=== PATIENT | female | born 1965 | race Caucasian/White ===

== ENCOUNTER → 2018-04-10 10:59 | Outpatient (CLI) | payer OTHER, SELFPAY ==
[2018-04-10 12:01] LABS: Alanine Aminotransferase 34 IU/L (9-52); Albumin 4.2 g/dL (3.5-5.0); Albumin Globulin Ratio 1.6 (1.0-2.8); Alkaline Phosphatase 93 U/L (38-126); Aspartate Aminotransferase 23 IU/L (14-36); BUN Creatinine Ratio 18.6 (6-22); Bilirubin Total 0.5 mg/dL (0.2-1.3); Blood Urea Nitrogen 13 mg/dL (7-17); Calcium 9.3 mg/dL (8.4-10.2); Carbon Dioxide 27 mmol/L (22-32); Chloride 104 mmol/L (98-107); Cholesterol 258 mg/dL (140-199); Estimated Glomerular Filt Rate > 60.0 mL/min (>60); Globulin 2.6 g/dL (1.7-4.1); Glucose 96 mg/dL (70-100); HDL Cholesterol 54 mg/dL (40-60); HEMOLYSIS < 15 (0-50); LDL Cholesterol Calculated 166 mg/dL (<100); Potassium 4.4 mmol/L (3.4-5.1); Sodium 143 mmol/L (137-145); Total Protein 6.8 g/dL (6.3-8.2); Triglycerides 189 mg/dL (35-150)
== END ==
PROVIDERS: Family Provider Physician Assistant; PCP Physician Assistant; Visit Provider Physician Assistant
DX: E78.5 Hyperlipidemia, unspecified (principal)
CPT/HCPCS: 36415; 80053; 80061

== ENCOUNTER → 2018-04-11 11:15 | Outpatient (CLI) | payer OTHER, SELFPAY ==
--- NOTE | 2018-04-11 11:16 | DI.RAD.S_ITS ---
PROCEDURE: XR FOOT RT MIN 3V INDICATIONS: right foot pain TECHNIQUE: 3 views of the foot were acquired. COMPARISON: None. FINDINGS: Bones: No fractures or dislocations. No suspicious bony lesions. Soft tissues: No tibiotalar joint effusion. Achilles tendon appears normal. IMPRESSION: No trauma found, no sign of stress fracture, source of current persistent pain is not seen. Dictated by: Anibal Danielle M.D. on 04/11/2018 at 12:51 Approved by: Anibal Danielle M.D. on 04/11/2018 at 12:51
== END ==
PROVIDERS: Family Provider Physician Assistant; PCP Physician Assistant; Visit Provider Physician Assistant
DX: M79.671 Pain in right foot (principal)
CPT/HCPCS: 73630

== ENCOUNTER → 2018-05-21 11:45 | Outpatient (CLI) | payer OTHER, SELFPAY ==
--- NOTE | 2018-05-21 09:45 | DI.MG.S_ITS ---
Patient Name: MANUEL HUMMEL date: 1965 Sex: F Attending Physician: Landen Indications: Date: 05/21/2018 12:15 At the request of: DI HAMMOND Procedure: MM screening mammo BI BILATERAL DIGITAL SCREENING MAMMOGRAM 3D/2D WITH CAD: 05/21/2018 CLINICAL: Routine screening. Comparison is made to exams dated: 09/09/2015 mammogram, 11/26/2012 mammogram, and 06/22/2011 mammogram - [facility]. The tissue of both breasts is heterogeneously dense. This may lower the sensitivity of mammography. Current study was also evaluated with a Computer Aided Detection (CAD) system. There is a benign lymph node in the left breast. No significant masses, calcifications, or other findings are seen in either breast. There has been no significant interval change. IMPRESSION: There is no mammographic evidence of malignancy. A 1 year screening mammogram is recommended. This exam was interpreted at Station ID: [id number]. NOTE: For mammograms, a report in lay terms will be sent to the patient. Approximately 15% of breast malignancies will not be visualized mammographically. In the management of a palpable breast mass, a negative mammogram must not discourage biopsy of a clinically suspicious lesion. Electronically Signed By: Mark ortega/sammie:05/21/2018 22:13:06 letter sent: Normal Exam ACR BI-RADS Category 2: Benign Finding(s) [id number]
== END ==
PROVIDERS: Family Provider Physician Assistant; PCP Physician Assistant; Visit Provider Physician Assistant
DX: Z12.31 Encounter for screening mammogram for malignant neoplasm of breast (principal)
CPT/HCPCS: 77063; 77067

== ENCOUNTER 2019-04-04 14:24 | Observation (INO) | payer OTHER, SELFPAY ==
[2019-04-04] VITALS (15 sets, daily range): BP systolic 99–169; BP diastolic 45–82; PULSE 18–84; RESP 14–26; TEMP 36.1–36.7; O2SAT 93–100; BMI 38.2
--- NOTE | 2019-04-04 14:33 | DI.RAD.S_ITS ---
PROCEDURE: XR CHEST 1V INDICATIONS: fall TECHNIQUE: One view of the chest was acquired. COMPARISON: [facility], , CHEST 2 VIEW, 05/26/2010, 13:52. FINDINGS: Surgical changes and devices: None. Lungs and pleura: Diffuse increased density of the left lung compared to the right lung probably is related to the patient's overlying breast and positioning of the patient. No definite consolidation is appreciated. There is no pneumothorax or large effusion. Mediastinum: Mediastinal contours appear normal. The heart is enlarged. Bones and chest wall: No suspicious bony lesions. Overlying soft tissues appear unremarkable. IMPRESSION: No acute cardio pulmonary process is appreciated. Dictated by: Yair Dougherty M.D. on 04/04/2019 at 14:27 Approved by: Yair Dougherty M.D. on 04/04/2019 at 14:29
--- NOTE | 2019-04-04 14:33 | DI.CT.S_ITS ---
PROCEDURE: CT HEAD/BRAIN WO CON INDICATIONS: fall significant head lac TECHNIQUE: Noncontrast 4.5 mm thick angled axial sections acquired from the foramen magnum to the vertex, with coronal and sagittal reformats. For radiation dose reduction, the following was used: automated exposure control, adjustment of mA and/or kV according to patient size. COMPARISON: None. FINDINGS: Image quality: Excellent. CSF spaces: Basal cisterns are patent. No extra-axial fluid collections. Ventricles are normal in size and shape. Brain: No midline shift. No intracranial masses or hemorrhage. Lott-white matter interface is normal. Skull and face: Large left parietal subgaleal hematoma Calvarium and visualized facial bones are intact, without suspicious lesions. Sinuses: Visualized sinuses and mastoids are clear. IMPRESSION: 1. Large left parietal subgaleal hematoma. 2. Negative for acute stroke, hemorrhage, or mass. No evidence of significant intracranial sequelae of acute trauma. Dictated by: Rob Scott M.D. on 04/04/2019 at 15:14 Approved by: Rob Scott M.D. on 04/04/2019 at 15:15
--- NOTE | 2019-04-04 14:33 | DI.RAD.S_ITS ---
PROCEDURE: XR PELVIS 1-2V INDICATIONS: trauma fall TECHNIQUE: 1 view(s) of the pelvis acquired. COMPARISON: [facility], CT, CT CHEST ABD PEL W CON, 04/04/2019, 14:37. FINDINGS: Bones: No displaced pelvic fractures are identified. Degenerative changes of the lower lumbar spine, sacroiliac joints, and pubic symphysis are present. Soft tissues: Visualized bowel gas pattern is normal. No suspicious soft tissue calcifications. Contrast is seen within the urinary bladder and kidneys and is overlying the bilateral kidneys. IMPRESSION: No displaced pelvic fractures. Dictated by: Yair Dougherty M.D. on 04/04/2019 at 14:26 Approved by: Yair Dougherty M.D. on 04/04/2019 at 14:27
[2019-04-04 14:58] LABS: Add Manual Diff / Slide Review NO; Basophils Absolute Auto 200 /uL (0-100); Basophils Percent Auto 1.1 % (0-2); Eosinophils Absolute Auto 300 /uL (0-450); Eosinophils Percent Auto 1.9 % (2-4); Hemoglobin 12.7 g/dL (12.0-16.0); Lymphocytes Absolute Auto 3000 /uL (1100-4500); Lymphocytes Percent Auto 17.7 % (25-40); Mean Corpuscular HGB Conc 34.3 % (30-36); Mean Corpuscular Volume 87.6 fL (80-100); Monocytes Absolute Auto 800 /uL (0-900); Neutrophils Absolute Auto 12400 /uL (1500-7000); Neutrophils Percent Auto 74.3 % (50-75); Platelet Count 307 X10^3/uL (150-400); Red Blood Cell Count 4.23 X10^6/uL (4.0-5.2); Red Cell Distribution Width 13.8 % (11.6-14.8); White Blood Cell Count 16.7 X10^3/uL (4.5-11.0)
--- NOTE | 2019-04-04 14:59 | ED.FALL ---
HPI - Fall General Chief Complaint: Trauma Stated Complaint: Fall Time Seen by Provider: 04/04/19 14:31 Source: patient and EMS Mode of arrival: EMS Limitations: no limitations History of Present Illness HPI Narrative: Patient is a 53-year-old female who presents after fall 8-10 feet. She appears to have landed on her head and back complaining of mostly back pain. No loss of consciousness has felt very nauseous and she received 8 of Zofran prior to arrival. She has an obvious had laceration of quite a bit of blood loss. She is not on any anti-platelet or anticoagulation medication. She states that she only takes hormone replacement. She denies numbness or tingling in her legs. MD complaint: fall Onset (ago): minute(s) Loss of consciousness: unsure Related Data Previous Rx's Medication Instructions Recorded estradiol 0.5 mg tablet 0.5 mg PO DAILY #90 tab 04/09/18 Allergies Allergy/AdvReac Type Severity Reaction Status Date / Time cat dander Allergy Mild ITCHY, Verified 04/04/19 15:13 WATERY EYES Penicillins [PENICILLINS] Allergy Mild HIVES Verified 04/04/19 15:13 hydrocodone [HYDROCODONE] AdvReac Intermediate MAKES MY Verified 04/04/19 15:13 SKIN CRAWL AND MY BRAIN BECOMES OVERACTIVE oxycodone [OXYCODONE] AdvReac Intermediate MAKES MY Verified 04/04/19 15:13 SKIN CRAWL AND MY BRAIN OVERACTIVE Review of Systems Review of Systems ROS Unobtainable: All systems reviewed & are unremarkable except as noted in HPI and below Constitutional Constitutional: Denies chills, Denies fever(s), Denies lethargy and Denies weakness Cardiovascular Cardiovascular: Denies dyspnea and Denies dyspnea on exertion Respiratory Respiratory: Denies cough, Denies dyspnea, Denies dyspnea on exertion and Denies wheezing Gastrointestinal Gastrointestinal: Denies abdominal pain, Denies change in bowel habits, Denies diarrhea, Denies nausea and Denies vomiting Genitourinary Genitourinary: Denies hematuria, Denies flank pain, Denies urinary incontinence and Denies urinary urgency Musculoskeletal Musculoskeletal: Reports as per HPI Integumentary/Breasts Skin/Breast: Denies pruritus, Denies erythema, Denies rash and Denies wounds Neurologic Neurologic: Denies weakness Allergic/Immunologic Allergic/Immunologic: Denies wheezing Patient History Family History (Updated 08/25/15 @ 00:00 by Gregg Noriega RN) Brother Age: 52 Depression Bulimia Drug abuse Grandfather Age: 96 Essential hypertension, hypertension with unspecified goal Heart disease Grandmother Age: 96 Essential hypertension, hypertension with unspecified goal Malignant neoplasm of colon, unspecified part of colon Mother Age: 76 Obesity, unspecified obesity severity, unspecified obesity type Essential hypertension, hypertension with unspecified goal Bipolar affective disorder, remission status unspecified Sister Age: 55 Bipolar affective disorder, remission status unspecified Obesity, unspecified obesity severity, unspecified obesity type Essential hypertension, hypertension with unspecified goal Sleep apnea, unspecified type Social History Smoking Status: Never smoker second hand exposure: No alcohol intake: current (wine on special occasions. ) substance use type: does not use Exam Initial Vital Signs Initial Vital Signs: Vital Signs Temperature 98.1 F 04/04/19 14:30 Pulse Rate 66 04/04/19 14:30 Respiratory Rate 26 H 04/04/19 14:30 Blood Pressure 167/73 H 04/04/19 14:30 Pulse Oximetry 99 04/04/19 14:30 GENERAL: Alert female back board and C-collar prior to arrival appears in pain HEENT: Head significant blood loss noted posterior laceration with hematoma, laceration is stellate complex deep 9 cm. EOMI, pupils reactive, face symmetric, moist mucous membranes, no hemotympanum, no septal hematoma NECK: C-collar in place no vertebral tenderness CARDIOVASCULAR: Regular rate and rhythm without murmurs, rubs or gallops. RESPIRATORY: Breath sounds equal bilaterally, no wheezes rales or rhonchi. No crepitations, no subcutaneous air, chest is nontender, no signs of trauma ABDOMEN: Soft, nontender. Normoactive bowel sounds all 4 quadrants. No guarding or rebound. BACK: Nontender vertebrae, no step-offs, no contusions states she is tender more in her left lumbar buttock area PELVIS: stable. EXTREMITIES: Normal range of motion, no clubbing or edema. Right upper extremity: Within normal limits Left upper extremity: Within normal limits Right lower extremity: Within normal limits Left lower extremity:Within normal limits NEUROLOGICAL: Cranial nerves II through XII grossly intact. Normal gait and speech. SKIN: Warm, dry, no petechiae, no rashes or lesions, no contusions or ecchymosis Procedures Laceration Repair Laceration 1: Site: scalp Size (cm): 9 Description: stellate Local Anesthetic: lidocaine 1% and with epi Amount of anesthesia used (mL): 15 Pre-repair: wound explored, irrigated extensively and deep structures intact Skin layer closed with: georgie (silk 0-0 #3 sutures with mattress, #9 georgie) Scores [facility] [place] coma scale eye opening: Spontaneous [place] coma scale verbal response: Orientated [place] coma scale motor response: Obey commands [place] coma scale total score: 15 Course Orders Ordered: ED Orders 04/04/19 14:33 CT head/brain wo con Stat XR chest 1V Stat XR pelvis 1-2V Stat 04/04/19 14:45 Complete Blood Count AUTO DIFF Stat Comprehensive Metabolic Panel Stat 04/04/19 14:58 CT cervical spine wo con Stat CT chest abd pel w con Stat Discontinued Medications Diphtheria/Tetanus/Acell Pertussis (Adacel) 0.5 ml IM .ONCE ONE Stop: 04/04/19 17:01 Last Admin: 04/04/19 17:01 Dose: 0.5 ml Documented by: EDGAR Hydromorphone HCl (Dilaudid) 0.5 mg IV NOW ONE Stop: 04/04/19 15:00 Last Admin: 04/04/19 15:03 Dose: 0.5 mg Documented by: CORY Hydromorphone HCl (Dilaudid) 1 mg IV NOW ONE Stop: 04/04/19 17:36 Last Admin: 04/04/19 17:49 Dose: 1 mg Documented by: EDGAR Lidocaine/Epinephrine (Xylocaine 1% W/Epi) 10 ml SUBCUT NOW ONE Stop: 04/04/19 15:28 Last Admin: 04/04/19 16:58 Dose: 10 ml Documented by: EDGAR Ondansetron HCl (Zofran) 4 mg IV NOW ONE Stop: 04/04/19 14:32 Last Admin: 04/04/19 16:57 Dose: 4 mg Documented by: EDGRA Consultations Consultation #1: I discussed case with Dr. Denton reviewed CT in regards to sacral fracture. Pain control and follow up outpatient. Time: 16:18 Consultation #2: Dr. brown, surgery updated on patient's symptoms test results persistent headache and dizziness. Agrees with admission for observation for concussion syndrome. Time: 19:00 Vital Signs Vital signs: Vital Signs - 8 hr 04/04/19 14:30 04/04/19 15:00 04/04/19 15:15 Temperature 98.1 F Pulse Rate 66 84 68 Respiratory Rate 26 H 18 14 Blood Pressure 167/73 H 169/82 H 151/65 H Blood Pressure [Left Arm] Pulse Oximetry 99 98 100 04/04/19 15:30 04/04/19 17:30 Temperature Pulse Rate 68 55 L Respiratory Rate 16 Blood Pressure Blood Pressure [Left Arm] 146/67 H 117/58 L Pulse Oximetry 100 100 MDM - Fall Lab Data Attestation: I reviewed the patient's lab results. Result diagrams: 04/04/19 14:45 04/04/19 14:45 Labs: Lab Results 04/04/19 04/04/19 Range/Units 14:45 14:45 WBC 16.7 H (4.5-11.0) X10^3/uL RBC 4.23 (4.0-5.2) X10^6/uL Hgb 12.7 (12.0-16.0) g/dL Hct 37.0 (36-46) % MCV 87.6 (80-100) fL MCH 30.0 (26-34) PG MCHC 34.3 (30-36) % RDW 13.8 (11.6-14.8) % Plt Count 307 (150-400) X10^3/uL Neut % (Auto) 74.3 (50-75) % Lymph % (Auto) 17.7 L (25-40) % [place] % (Auto) 5.0 (3-14) % Eos % (Auto) 1.9 L (2-4) % Baso % (Auto) 1.1 (0-2) % Neut # (Auto) 31348 H (8229-1686) /uL Lymph # (Auto) 3000 (0611-6374) /uL [place] # (Auto) 800 (0-900) /uL Eos # (Auto) 300 (0-450) /uL Baso # (Auto) 200 H (0-100) /uL Sodium 138 (137-145) mmol/L Potassium 3.5 (3.4-5.1) mmol/L Chloride 106 (98-107) mmol/L Carbon Dioxide 21 L (22-32) mmol/L BUN 20 H (7-17) mg/dL Creatinine 0.80 (0.52-1.04) mg/dL Estimated GFR > 60.0 (>60) mL/min BUN/Creatinine Ratio 25.0 H (6-22) Glucose 120 H (70-100) mg/dL Calcium 9.1 (8.4-10.2) mg/dL Total Bilirubin 0.7 (0.2-1.3) mg/dL AST 40 H (14-36) IU/L ALT 31 (<35) IU/L Alkaline Phosphatase 66 (38-126) U/L Total Protein 6.7 (6.3-8.2) g/dL Albumin 4.1 (3.5-5.0) g/dL Globulin 2.6 (1.7-4.1) g/dL Albumin/Globulin Ratio 1.6 (1.0-2.8) Imaging Data Chest x-ray: Radiologist's impression: PROCEDURE: XR CHEST 1V INDICATIONS: fall TECHNIQUE: One view of the chest was acquired. COMPARISON: [facility], CR, CHEST 2 VIEW, 05/26/2010, 13:52. FINDINGS: Surgical changes and devices: None. Lungs and pleura: Diffuse increased density of the left lung compared to the right lung probably is related to the patient's overlying breast and positioning of the patient. No definite consolidation is appreciated. There is no pneumothorax or large effusion. Mediastinum: Mediastinal contours appear normal. The heart is enlarged. Bones and chest wall: No suspicious bony lesions. Overlying soft tissues appear unremarkable. IMPRESSION: No acute cardio pulmonary process is appreciated. Dictated by: Yair Dougherty M.D. on 04/04/2019 at 14:27 pelvis xr: Radiologist's impression: PROCEDURE: XR PELVIS 1-2V INDICATIONS: trauma fall TECHNIQUE: 1 view(s) of the pelvis acquired. COMPARISON: [facility], CT, CT CHEST ABD PEL W CON, 04/04/2019, 14:37. FINDINGS: Bones: No displaced pelvic fractures are identified. Degenerative changes of the lower lumbar spine, sacroiliac joints, and pubic symphysis are present. Soft tissues: Visualized bowel gas pattern is normal. No suspicious soft tissue calcifications. Contrast is seen within the urinary bladder and kidneys and is overlying the bilateral kidneys. IMPRESSION: No displaced pelvic fractures. Dictated by: Yair Dougherty M.D. on 04/04/2019 at 14:26 CT scan - head: Radiologist's impression: PROCEDURE: CT HEAD/BRAIN WO CON INDICATIONS: fall significant head lac TECHNIQUE: Noncontrast 4.5 mm thick angled axial sections acquired from the foramen magnum to the vertex, with coronal and sagittal reformats. For radiation dose reduction, the following was used: automated exposure control, adjustment of mA and/or kV according to patient size. COMPARISON: None. FINDINGS: Image quality: Excellent. CSF spaces: Basal cisterns are patent. No extra-axial fluid collections. Ventricles are normal in size and shape. Brain: No midline shift. No intracranial masses or hemorrhage. Lott-white matter interface is normal. Skull and face: Large left parietal subgaleal hematoma Calvarium and visualized facial bones are intact, without suspicious lesions. Sinuses: Visualized sinuses and mastoids are clear. IMPRESSION: 1. Large left parietal subgaleal hematoma. 2. Negative for acute stroke, hemorrhage, or mass. No evidence of significant intracranial sequelae of acute trauma. Dictated by: Rob Scott M.D. on 04/04/2019 at 15:14 ct cervical: Radiologist's impression: PROCEDURE: CT CERVICAL SPINE WO CON INDICATIONS: fall TECHNIQUE: Noncontrast 3 mm thick sections acquired from the skull base to the T4 level. Sagittal and coronal reformats were then constructed. For radiation dose reduction, the following was used: automated exposure control, adjustment of mA and/or kV according to patient size. COMPARISON: None. FINDINGS: Image quality: Excellent. Bones: No fractures or dislocations. Visualized superior ribs are intact. Soft tissues: Prevertebral soft tissues are normal in thickness. No paravertebral hematomas. No apical pneumothoraces. IMPRESSION: No evidence cervical fracture or dislocation. Dictated by: Rob Scott M.D. on 04/04/2019 at 15:12 CT scan - chest: Radiologist's impression: PROCEDURE: CT CHEST ABD PEL W CON INDICATIONS: fall low pack and pelvic pain TECHNIQUE: After the administration of intravenous contrast, 5 mm thick sections acquired from the lung apices to the symphysis. 2.5 mm thick coronal and sagittal reformats were acquired. Additional 7 mm thick coronal maximum intensity projection (MIP) reformats acquired through the lungs. Optional 10-minute delayed imaging may be performed from the kidneys to the bladder. For radiation dose reduction, the following was used: automated exposure control, adjustment of mA and/or kV according to patient size. COMPARISON: [facility], CT, ABDOMEN/PELVIS WITH CONTRAST, 03/05/2015, 11:09. FINDINGS: Image quality: Excellent. CHEST: Lungs: No pulmonary contusions or lacerations. No acute airspace opacities. No pneumothorax or hemothorax. Central and peripheral airways appear patent and normal in caliber. Mediastinum: No mediastinal hematomas. Heart size is normal. No pericardial effusion. Thoracic aorta and pulmonary arteries demonstrate normal size and enhancement. No mediastinal or hilar adenopathy. Esophagus is normal in caliber. No hiatal hernia. Chest wall: No rib fractures. No subcutaneous emphysema. No axillary or supraclavicular adenopathy. Thyroid gland is unremarkable. ABDOMEN: Solid organs: Liver is normal in size and enhancement, without lacerations. Gallbladder is unremarkable. Biliary system is non-dilated. Pancreas enhances normally, without transection. Spleen is normal in size and enhancement, without lacerations. No adrenal hematomas. Both kidneys enhance normally, without hydronephrosis or lacerations. Peritoneum and bowel: No free fluid or air. Unenhanced bowel loops demonstrate normal wall thickness and caliber. Nodes and vessels: No retroperitoneal or mesenteric adenopathy. Aorta and inferior vena cava are normal in size and enhancement. Miscellaneous: No ventral hernias. PELVIS: Genitourinary: Bladder wall thickness is normal. Miscellaneous: No inguinal hernias or adenopathy. Bones: There appear to be 13 rib bearing vertebrae. The lowest rib-bearing vertebra has a mild acute compression fracture. There is a transitional lumbosacral vertebra. The vertebra above the transitional vertebra has bilateral chronic pars defects with minimal anterolisthesis present. There is a acute sacral fracture with a transverse component involving approximately S2. There are no other pelvic fractures identified. IMPRESSION: 1. Mild acute compression fracture involving the lowest rib-bearing vertebra. 2. Transverse sacral fracture. 3. Transitional lumbosacral vertebra. 4. Chronic bilateral pars defects one level above the transitional lumbosacral vertebra with chronic mild anterolisthesis at that level. Dictated by: Rob Scott M.D. on 04/04/2019 at 15:16 MDM Narrative Medical decision making narrative: Patient continues to be nauseous and have headache Dilaudid does seem to help. She does not tolerate hydrocodone or oxycodone for a while but Dilaudid seems to help with her back pain and headache. She is quite sensitive to light. Every time she sits up she gets extremely dizzy and lightheaded and her headache gets significantly worse. Patient has significant mechanism fall with obvious head injury no intracranial hemorrhage identified at this time she actually is not on any anti-platelet or anticoagulation medication. However based on symptoms and mechanism recommend patient be admitted for observation for concussion syndrome and close monitoring. I have spoken with surgery about this who agrees and will come and evaluate patient. Discharge Plan Departure Patient Disposition: Admitted as Observation Clinical Impression: Concussion Qualifiers: Encounter type: initial encounter Loss of consciousness presence/duration: without LOC Qualified Code(s): S06.0X0A - Concussion without loss of consciousness, initial encounter Laceration of head Qualifiers: Encounter type: initial encounter Location of open wound of head: scalp Foreign body presence: without foreign body Qualified Code(s): S01.01XA - Laceration without foreign body of scalp, initial encounter Sacral fracture Qualifiers: Encounter type: initial encounter Zone of sacrum fracture: unspecified portion of sacrum Fracture type: closed Qualified Code(s): S32.10XA - Unspecified fracture of sacrum, initial encounter for closed fracture
[2019-04-04] MEDS: HYDROMORPHONE 0.5 MG INJ IV ×3 (15:03→23:54)
[2019-04-04 15:11] LABS: Alanine Aminotransferase 31 IU/L (<35); Albumin 4.1 g/dL (3.5-5.0); Albumin Globulin Ratio 1.6 (1.0-2.8); Alkaline Phosphatase 66 U/L (38-126); Aspartate Aminotransferase 40 IU/L (14-36); Bilirubin Total 0.7 mg/dL (0.2-1.3); Blood Urea Nitrogen 20 mg/dL (7-17); Calcium 9.1 mg/dL (8.4-10.2); Carbon Dioxide 21 mmol/L (22-32); Chloride 106 mmol/L (98-107); Estimated Glomerular Filt Rate > 60.0 mL/min (>60); Globulin 2.6 g/dL (1.7-4.1); Glucose 120 mg/dL (70-100); HEMOLYSIS 48 (0-50); Potassium 3.5 mmol/L (3.4-5.1); Sodium 138 mmol/L (137-145); Total Protein 6.7 g/dL (6.3-8.2)
[2019-04-04] MEDS: ONDANSETRON 4 MG/2 ML INJ IV ×2 (16:57→20:05)
[2019-04-04] MEDS: LIDOCAINE 1% W/EPI 10 ML SUBCUT (16:58)
[2019-04-04] MEDS: TET,DIPH,PERTUSS(ACELL),VAC/PF 0.5 ML SYRINGE IM (17:01)
--- NOTE | 2019-04-04 17:12 | PC.NURSE ---
Pt has a large scalp wound seen on arrival. Pt has a large amount of clotting that has matting to entire head and it is difficult to assess extent of wounds to scalp, cleaning for 1 hour after repair of main head laceration. Pt is able to move from side to side slowly with difficulty yet independent. Pt medicated for nausea after moving.
[2019-04-04] MEDS: HYDROMORPHONE 1 MG INJ IV (17:49)
--- NOTE | 2019-04-04 20:16 | P.HP_ITS ---
History of Present Illness History of Present Illness Date Patient Seen: 04/04/19 Time Patient Seen: 20:16 Chief complaint: Fall Narrative: This is a 53-year-old woman who came in as the trauma alert for fall from height, 8-10 feet. She was on her roof, and a says she tried to come down the ladder, and she does not remember what happened, but ultimately she woke up on the ground. The patient says her daughter told her she hit her head on the concrete, and there was a large pool of blood on the concrete. The patient says her daughter reported that she crawled into her home and called her daughter for help. In the ER she was dizzy and nauseated, but maintained consciousness. She had a CT scan of head C-spine chest abdomen pelvis, and was found to have a thoracic vertebra fracture, sacral vertebrae fracture, a large subgaleal hematoma, and a large head lac. The head lack was closed with sutures and georgie by the ER doctor. They tried to get the patient up to walk her around, and she was too dizzy to tolerate sitting upright. The patient is now alert and talking clearly with good recollection of remote and recent details. ROS:She reports some blurry vision, but denies double vision. She says that she was photosensitive but now denies any sensitivity to light. She still feels very dizzy if she sits up. She denies a headache, nausea, abdominal pain, chest pain, extremity pain. She her only complaint is lower back pain. She needs to urinate but denies dysuria or incontinence. Ten system ROS was otherwise negative. Home meds: estradiol 0.5 mg tablet 0.5 mg PO DAILY #90 tab 04/09/18 Allergies Allergy/AdvReac Type Severity Reaction Status Date / Time cat dander Allergy Mild ITCHY, Verified 04/04/19 15:13 WATERY EYES Penicillins [PENICILLINS] Allergy Mild HIVES Verified 04/04/19 15:13 hydrocodone [HYDROCODONE] AdvReac Intermediate MAKES MY Verified 04/04/19 15:13 SKIN CRAWL AND MY BRAIN BECOMES OVERACTIVE oxycodone [OXYCODONE] AdvReac Intermediate MAKES MY Verified 04/04/19 15:13 SKIN CRAWL AND MY BRAIN OVERACTIVE PE: GENERAL: Alert female lying in left lateral decubitus position, with a moderate amount of blood caked in her hair an on pad behind her head. She appears comfortable, with no signs of distress. HEENT: Head significant blood loss noted posterior laceration with hematoma, laceration is stellate complex, 9 cm. EOMI, PERRLA, face symmetric, moist mucous membranes NECK: Supple, full range of motion CARDIOVASCULAR: Regular rate and rhythm without murmurs, rubs or gallops. RESPIRATORY: Breath sounds equal bilaterally, no wheezes rales or rhonchi. Good air movement bilaterally ABDOMEN: Soft, nontender. No guarding or rebound. BACK: Nontender vertebrae, no step-offs EXTREMITIES: Normal range of motion. No lacerations, contusions, or edema NEUROLOGICAL: Cranial nerves grossly intact. Normal speech. SKIN: Warm, dry, no petechiae, no other rashes or lesions, no contusions or ecchymosis Psych: Appropriate mood and affect GCS [place] coma scale eye opening: Spontaneous [place] coma scale verbal response: Orientated [place] coma scale motor response: Obey commands Kalli coma scale total score: 15 Imaging Data Chest x-ray: Radiologist's impression: PROCEDURE: XR CHEST 1V INDICATIONS: fall TECHNIQUE: One view of the chest was acquired. COMPARISON: [facility], CR, CHEST 2 VIEW, 05/26/2010, 13:52. FINDINGS: Surgical changes and devices: None. Lungs and pleura: Diffuse increased density of the left lung compared to the right lung probably is related to the patient's overlying breast and positioning of the patient. No definite consolidation is appreciated. There is no pneumothorax or large effusion. Mediastinum: Mediastinal contours appear normal. The heart is enlarged. Bones and chest wall: No suspicious bony lesions. Overlying soft tissues appear unremarkable. IMPRESSION: No acute cardio pulmonary process is appreciated. Dictated by: Yair Dougherty M.D. on 04/04/2019 at 14:27 pelvis xr: Radiologist's impression: PROCEDURE: XR PELVIS 1-2V INDICATIONS: trauma fall TECHNIQUE: 1 view(s) of the pelvis acquired. COMPARISON: [facility], CT, CT CHEST ABD PEL W CON, 04/04/2019, 14:37. FINDINGS: Bones: No displaced pelvic fractures are identified. Degenerative changes of the lower lumbar spine, sacroiliac joints, and pubic symphysis are present. Soft tissues: Visualized bowel gas pattern is normal. No suspicious soft tissue calcifications. Contrast is seen within the urinary bladder and kidneys and is overlying the bilateral kidneys. IMPRESSION: No displaced pelvic fractures. Dictated by: Yair Dougherty M.D. on 04/04/2019 at 14:26 CT scan - head: Radiologist's impression: PROCEDURE: CT HEAD/BRAIN WO CON INDICATIONS: fall significant head lac TECHNIQUE: Noncontrast 4.5 mm thick angled axial sections acquired from the foramen magnum to the vertex, with coronal and sagittal reformats. For radiation dose reduction, the following was used: automated exposure control, adjustment of mA and/or kV according to patient size. COMPARISON: None. FINDINGS: Image quality: Excellent. CSF spaces: Basal cisterns are patent. No extra-axial fluid collections. Ventricles are normal in size and shape. Brain: No midline shift. No intracranial masses or hemorrhage. Lott-white matter interface is normal. Skull and face: Large left parietal subgaleal hematoma Calvarium and visualized facial bones are intact, without suspicious lesions. Sinuses: Visualized sinuses and mastoids are clear. IMPRESSION: 1. Large left parietal subgaleal hematoma. 2. Negative for acute stroke, hemorrhage, or mass. No evidence of significant intracranial sequelae of acute trauma. Dictated by: Rob Scott M.D. on 04/04/2019 at 15:14 ct cervical: Radiologist's impression: PROCEDURE: CT CERVICAL SPINE WO CON INDICATIONS: fall TECHNIQUE: Noncontrast 3 mm thick sections acquired from the skull base to the T4 level. Sagittal and coronal reformats were then constructed. For radiation dose reduction, the following was used: automated exposure control, adjustment of mA and/or kV according to patient size. COMPARISON: None. FINDINGS: Image quality: Excellent. Bones: No fractures or dislocations. Visualized superior ribs are intact. Soft tissues: Prevertebral soft tissues are normal in thickness. No paravertebral hematomas. No apical pneumothoraces. IMPRESSION: No evidence cervical fracture or dislocation. Dictated by: Rob Scott M.D. on 04/04/2019 at 15:12 CT scan - chest: Radiologist's impression: PROCEDURE: CT CHEST ABD PEL W CON INDICATIONS: fall low pack and pelvic pain TECHNIQUE: After the administration of intravenous contrast, 5 mm thick sections acquired from the lung apices to the symphysis. 2.5 mm thick coronal and sagittal reformats were acquired. Additional 7 mm thick coronal maximum intensity projection (MIP) reformats acquired through the lungs. Optional 10-minute delayed imaging may be performed from the kidneys to the bladder. For radiation dose reduction, the following was used: automated exposure control, adjustment of mA and/or kV according to patient size. COMPARISON: [facility], CT, ABDOMEN/PELVIS WITH CONTRAST, 03/05/2015, 11:09. FINDINGS: Image quality: Excellent. CHEST: Lungs: No pulmonary contusions or lacerations. No acute airspace opacities. No pneumothorax or hemothorax. Central and peripheral airways appear patent and normal in caliber. Mediastinum: No mediastinal hematomas. Heart size is normal. No pericardial effusion. Thoracic aorta and pulmonary arteries demonstrate normal size and enhancement. No mediastinal or hilar adenopathy. Esophagus is normal in caliber. No hiatal hernia. Chest wall: No rib fractures. No subcutaneous emphysema. No axillary or supraclavicular adenopathy. Thyroid gland is unremarkable. ABDOMEN: Solid organs: Liver is normal in size and enhancement, without lacerations. Gallbladder is unremarkable. Biliary system is non-dilated. Pancreas enhances normally, without transection. Spleen is normal in size and enhancement, without lacerations. No adrenal hematomas. Both kidneys enhance normally, without hydronephrosis or lacerations. Peritoneum and bowel: No free fluid or air. Unenhanced bowel loops demonstrate normal wall thickness and caliber. Nodes and vessels: No retroperitoneal or mesenteric adenopathy. Aorta and inferior vena cava are normal in size and enhancement. Miscellaneous: No ventral hernias. PELVIS: Genitourinary: Bladder wall thickness is normal. Miscellaneous: No inguinal hernias or adenopathy. Bones: There appear to be 13 rib bearing vertebrae. The lowest rib-bearing vertebra has a mild acute compression fracture. There is a transitional lumbosacral vertebra. The vertebra above the transitional vertebra has bilateral chronic pars defects with minimal anterolisthesis present. There is a acute sacral fracture with a transverse component involving approximately S2. There are no other pelvic fractures identified. IMPRESSION: 1. Mild acute compression fracture involving the lowest rib-bearing vertebra. 2. Transverse sacral fracture. 3. Transitional lumbosacral vertebra. 4. Chronic bilateral pars defects one level above the transitional lumbosacral vertebra with chronic mild anterolisthesis at that level. Patient History Surgical History (Updated 04/04/19 @ 20:33 by Glenis Neri MD) History of (Acute) Family & Social History Family History Brother Age: 52 Depression Bulimia Drug abuse Grandfather Age: 96 Essential hypertension, hypertension with unspecified goal Heart disease Grandmother Age: 96 Essential hypertension, hypertension with unspecified goal Malignant neoplasm of colon, unspecified part of colon Mother Age: 76 Obesity, unspecified obesity severity, unspecified obesity t ype Essential hypertension, hypertension with unspecified goal Bipolar affective disorder, remission status unspecified Sister Age: 55 Bipolar affective disorder, remission status unspecified Obesity, unspecified obesity severity, unspecified obesity type Essential hypertension, hypertension with unspecified goal Sleep apnea, unspecified type Safety & Behavioral: Feels Safe in Current Yes Environment Tobacco & Substance use: Smoking Status Never smoker alcohol intake current Substance Use Type does not use Meds Home Medications and Allergies Home Medications Medication Instructions Recorded Confirmed Type estradiol 0.5 mg tablet 0.5 mg PO DAILY #90 tab 04/09/18 04/04/19 Rx Allergies Allergy/AdvReac Type Severity Reaction Status Date / Time cat dander Allergy Mild ITCHY, Verified 04/04/19 15:13 WATERY EYES Penicillins [PENICILLINS] Allergy Mild HIVES Verified 04/04/19 15:13 hydrocodone [HYDROCODONE] AdvReac Intermediate MAKES MY Verified 04/04/19 15:13 SKIN CRAWL AND MY BRAIN BECOMES OVERACTIVE oxycodone [OXYCODONE] AdvReac Intermediate MAKES MY Verified 04/04/19 15:13 SKIN CRAWL AND MY BRAIN OVERACTIVE Exam Vital Signs (past 8 hours): - 04/04/19 14:30 04/04/19 15:00 04/04/19 15:15 Temperature 98.1 F Pulse Rate 66 84 68 Respiratory Rate 26 H 18 14 Blood Pressure 167/73 H 169/82 H 151/65 H Blood Pressure [Left Arm] Pulse Oximetry 99 98 100 04/04/19 15:30 04/04/19 17:30 Temperature Pulse Rate 68 55 L Respiratory Rate 16 Blood Pressure Blood Pressure [Left Arm] 146/67 H 117/58 L Pulse Oximetry 100 100 Oxygen Delivery Method Room Air Objective Labs Result Diagrams: 04/04/19 14:45 04/04/19 14:45 Labs: Laboratory Results - last 24 hr 04/04/19 04/04/19 14:45 14:45 WBC 16.7 H RBC 4.23 Hgb 12.7 Hct 37.0 MCV 87.6 MCH 30.0 MCHC 34.3 RDW 13.8 Plt Count 307 Neut % (Auto) 74.3 Lymph % (Auto) 17.7 L Hart % (Auto) 5.0 Eos % (Auto) 1.9 L Baso % (Auto) 1.1 Neut # (Auto) 15434 H Lymph # (Auto) 3000 Hart # (Auto) 800 Eos # (Auto) 300 Baso # (Auto) 200 H Sodium 138 Potassium 3.5 Chloride 106 Carbon Dioxide 21 L BUN 20 H Creatinine 0.80 Estimated GFR > 60.0 BUN/Creatinine Ratio 25.0 H Glucose 120 H Calcium 9.1 Total Bilirubin 0.7 AST 40 H ALT 31 Alkaline Phosphatase 66 Total Protein 6.7 Albumin 4.1 Globulin 2.6 Albumin/Globulin Ratio 1.6 Assessment & Plan Assessment and plan (1) Laceration of head: Qualifiers: Encounter type: initial encounter Foreign body presence: without foreign body Location of open wound of head: scalp Qualified Code(s): S01.01XA - Laceration without foreign body of scalp, initial encounter Current visit: Yes Status: Acute (2) Sacral fracture: Qualifiers: Encounter type: initial encounter Fracture type: closed Zone of sacrum fracture: unspecified portion of sacrum Qualified Code(s): S32.10XA - Unspecified fracture of sacrum, initial encounter for closed fracture Current visit: Yes Status: Acute (3) Concussion: Qualifiers: Encounter type: initial encounter Loss of consciousness presen ce/duration: without LOC Qualified Code(s): S06.0X0A - Concussion without loss of consciousness, initial encounter Current visit: Yes Status: Acute (4) Thoracic spine fracture: Current visit: Yes Status: Acute Assessment & Plan narrative: This is a 53-year-old woman who has symptoms of concussion after a fall from 8-10 foot height that resulted in a head laceration and significant scalp hematoma. Her head laceration was closed by the ER doctor and her C-collar was cleared by the ER doctor. She was not able to sit upright without getting dizzy, and so she will be kept overnight for observation and frequent neuro checks. PT has been ordered to help her with ambulation and mobility given her dizziness and spine fractures. Her spine fractures are non op, and she has no activity limitations. Plan: Admit to acute care floor for obvious Acute 2 hour neuro checks Stat repeat head CT if any concerning decline in mental status As needed pain medications, antiemetics Clear liquid diet, advanced as tolerated Ambulate as tolerated once dizziness is better Dispo pending p.o. tolerance, ambulation tolerance and stable neuro exam 55 minutes were spent face to face with the patient. More than 50% of the time was spent in reviewing history, imaging, and counseling and co-ordination of care regarding her fall tonight her head injury, her current symptoms, and the plan for managing her spinal fractures as well as her concussion. Time Spent With Patient Time with patient: Greater than 35 minutes Scores GCS [place] coma scale eye opening: Spontaneous [place] coma scale verbal response: Orientated [place] coma scale motor response: Obey commands [place] coma scale total score: 15 Quality VTE Deep Vein Thrombosis/Pulmonary Embolism Present on Admission: No
--- NOTE | 2019-04-04 20:58 | PC.NURSE ---
1940 patient assisted to [facility], pt had severe dizziness and nausea with change of position, relieved by not moving. Pt up to [facility] with 2 person assist. able to void 500ml's of clear yellow urine. Pt AOx3, report called to Esteban PALACIOS.
[2019-04-04] MEDS: ACETAMINOPHEN 325 MG TABLET 650 MG PO (21:41)
[2019-04-04] MEDS: KETOROLAC 15 MG/ML VIAL IV (21:42)
[2019-04-04] MEDS: SODIUM CHLORIDE 0.9% 1,000 ML 100 ML IV (21:56)
--- NOTE | 2019-04-04 22:27 | PC.NURSE ---
Pt arrived on unit at approx 2100 on stretcher from ER. She c/o px 8-01/21 and got good relief from 650 mg po APAP plus 0.5 mg IVP Dilaudid and 50 mg IVP toradol. She was resting quietly when she turned over from her L side to her R side and had intense N/V, with 700 mLs emesis. She denies nausea and dizziness now. LBM today and could not urinated on bedpan. Will try BSC with two CGA. Able to doze off, O2 sat high 90's on RA.
[2019-04-04] MEDS: FAMOTIDINE 20 MG/50 ML PIGGYBACK 200 MG IV (23:53)
--- NOTE | 2019-04-04 23:57 | PC.NURSE ---
Pt. declined 1 mg. Dilaudid IVP, states that's too much. Requested 0.5 mg. of Dilaudid IVP instead of getting 1 mg. Will medicate her with 0.5 mg. IVp Dilaudid. W@ill cont. POC & monitor.
[2019-04-05] VITALS (11 sets, daily range): BP systolic 109–141; BP diastolic 50–73; PULSE 61–80; RESP 16–18; TEMP 36.1–37.7; O2SAT 93–100
--- NOTE | 2019-04-05 04:41 | PC.NURSE ---
Pt. got up to the BSC earlier this shift & moving in bed independently with out any dizziness or nausea. She requested to go to the BR & take a shower. She did not C/O dizziness while taking a shower, but after she showered she C/O nausea & vomited 575 cc of greenish emesis. Assisted back to bed & states I felt a lot better & I'm not nauseated anymore. No C/O headache & other discomfort. Will cont. POC & monitor.
[2019-04-05] MEDS: HYDROMORPHONE 0.5 MG INJ IV (06:07)
[2019-04-05] MEDS: SODIUM CHLORIDE 0.9% 1,000 ML 100 ML IV (08:18)
[2019-04-05] MEDS: DOCUSATE 100 MG CAPSULE PO ×2 (08:18→21:56)
[2019-04-05] MEDS: KETOROLAC 15 MG/ML VIAL IV (08:19)
--- NOTE | 2019-04-05 10:15 | CM.DANOTE ---
DCP: Case received, EMR reviewed and met with patient. Introduced self and role. Was able to meet with patient briefly in her room to obtain baseline activity history. DCP assessment completed with information currently available. Patient is a 53 year old female who admitted yesterday evening to the care of the hospitalist/surgical team. PCP: HUA Browne. Payer: confirmed: [facility]. Patient came to the hospital via ambulance secondary to a ground level fall, between 8-10 feet. Patient had been near the roof of her home putting up a wreath. She went down the ladder, slipped, and fell. Patient stated she does not remember what happened right away, but she crawled into the house to call EMS. She holds diagnosis of sacral fracture, as well as left parietal hematoma. Patient resides here in [place] with her daughter, Lorraine. She mentioned that her son is coming out from college in [place] for the holidays, and she mentioned, I should have waited for my son to go up on the roof. Patient is , and is employed through [employer]. P: DCP to follow closely. Patient will be working with P.T. as well. Will collaborate with physical therapy regarding any recommendations. Patient does have supportive daughter as home as well. Cora Looney RN/Director Security Risk Management
--- NOTE | 2019-04-05 10:22 | PC.NURSE ---
Addendum entered by Noel Florez R.N. 04/05/19 15:19: Neuro checks remain stable and asymptomatic. Patient able to ambulate to bathroom for shower and hair care. However, with ambulation, some dizziness and nausea did occur. MD aware. Care is ongoing. Addendum entered by Noel Florez R.N. 04/05/19 13:18: Patient continues to deny any neurological changes, neuro checks intact. Tolerated lunch well and denies nausea or dizziness at rest, yet to ambulate post meal. Patient continues to have some pain to the lower back, which is well controlled with ordered PO medications as of this time. Care continues. Original Note: Day Shift Note Patient alert and oriented x4. Complains of some nausea and dizziness with movement upon assessment. Patient complains of some pain to laceration site on scalp, but denies diffuse headache, vision changes or other neuro symptoms. At 1020 patient states that she was able to ambulate to bathroom and back to bed without any dizziness or nausea, does state that she walked slow. Care is ongoing.
--- NOTE | 2019-04-05 10:44 | PT.IIE ---
Current Diagnoses Laceration without foreign body of scalp, initial encounter (04/04/19) Concussion without loss of consciousness, initial encounter (04/04/19) Unspecified fracture of unspecified thoracic vertebra, initial encounter for closed fracture (04/04/19) Unspecified fracture of sacrum, initial encounter for closed fracture (04/04/19) Surgical History (Last Reviewed 04/05/19 @ 11:58 by Felicity Villafana MD) History of (Acute) Physical Therapy Inpatient Evaluation/Re-Eval M1 PT/OT-IP Prior Functional Status Start: 04/05/19 12:12 Freq: NEEDED Status: Active Protocol: Document 04/05/19 10:44 AB (Rec: 04/05/19 12:26 AB [id number]) Medical Review Prior Functional Status Medical History Reviewed Yes Communication able to make needs known Mobility and Gait stated that she is independent with all mobilities and ambulation without AD Prior Functional Level (Other details) pt lives with her daughter but daughter is studying and pt will not have assistance at home most of the day. a friend may be able to assist if needed. Social History Household Members children Living Arrangements House Number of Floors (Floors) Two Floors Number of Stairs To Enter/Railing? 2 steps to enter with 2 banisters has 14 steps to bedroom level: 2 rails on first half and then L rail ascending on 2nd half Home Environment Standard Height Toilet,Tub/ Shower Additional Social History Comment pt stated that she works from home M2 PT-IP Current Condition Start: 04/05/19 12:12 Freq: NEEDED Status: Active Protocol: Document 04/05/19 10:44 AB (Rec: 04/05/19 12:26 AB [id number]) Physical Therapy Current Condition Current Condition Evaluation Date 04/05/19 Treatment Diagnosis s/p fall; concussion; sacral fx; thoracic spine fx; difficulty in walking Onset Date 04/04/19 M3 PT-IP Subjective Start: 04/05/19 12:12 Freq: NEEDED Status: Active Protocol: Document 04/05/19 10:44 AB (Rec: 04/05/19 12:26 AB [id number]) Subjective Physical Therapy Visit Type Type Initial Evaluation Visit Start Time 10:44 Visit Stop Time 11:42 Total Visit Minutes 26 Notes pt seen for split visits: 1044 to 1049; 1121 to 1142 per doctor's note: no surgery required and activity as tolerated Number of MARKET RESEARCH ANALYST Visits 0 Physical Therapy Visit Comments Patient Comments pt agreeable to do PT Therapy Pain Assessment Pain When Pain Assessed At Rest Pain Present Pain Present Pain Reported Location Posterior Head Intensity 3 Scale Used Numeric (1 - 10) Lower Back Intensity 5 Scale Used Numeric (1 - 10) Pain Management Techniques Re-positioning,Timing of Activity with Medications M4 PT-IP Mobility and Gait Start: 04/05/19 12:12 Freq: NEEDED Status: Active Protocol: Document 04/05/19 10:44 AB (Rec: 04/05/19 12:26 AB [id number]) PT-Bed Mobility Assessment Rolling Type of Rolling Log Rolling Level of Assist Standby Assistance Supine to Sit Supine to Sit Standby Assistance,1 Person Assistance Sit to Supine Sit to Supine Standby Assistance,1 Person Assistance Scooting Scooting to Edge of Bed Standby Assistance PT-Transfer Assessment Sit to and From Stand Sit to and from Stand Standby Assistance,Contact Guard Assistance,1 Person Assistance,Use of Upper Extremities Equipment Transfer Assistive Device None,Gait Belt Orthotic/Prosthetic Devices or Brace: No Transfers Transfer Destination Toilet Transfer Technique ambulated to the toilet Transfer Ability Level of Assist Standby Assistance,Contact Guard Assistance,1 Person Assistance,Use of Upper Extremities Comments Mobility Comments pt c/o nausea with change in positions but dissipated after resting and was able to complete all tasks. BP: 131/ 69 Gait Assessment Gait Gait Assistance Required: Standby Assistance,Contact Guard Assist Distance (Feet) 125 Able to Maintain Weight Bearing Status Yes During Gait Assistive Devices Assistive Device None,Gait Belt Orthotic/Prosthetic Devices or Brace: No Gait Deviations General Gait Pattern Decreased Stride Length Factors Limiting Gait Function Factors Limiting Gait Function Decreased Strength,Limited Range of Motion,Pain PT-Balance Assessment Sitting Balance and Reactions Static Sitting Balance Ability Normal Dynamic Sitting Balance Ability Good Standing Balance and Reactions Static Standing Balance Ability Good Dynamic Standing Balance Ability Fair Device Used without AD M5 PT-IP Objective Assessments Start: 04/05/19 12:12 Freq: NEEDED Status: Active Protocol: Document 04/05/19 10:44 AB (Rec: 04/05/19 12:26 AB [id number]) Orientation Orientation/Cognition Level of Alertness Alert Orientation Name,Age,Birthday,Month,Date, Year,Day of Week,Place, Situation Language Function Ability No Deficits Noted Safety Awareness Understands Safety Issues Memory Description No Deficits Noted Gross Range of Motion Lower Extremity ROM Assessment Within Functional Limits Strength Lower Extremity Strength Assessment Within Functional Limits Coordination Assessment Gross Coordination Gross Coordination WNL Sensation Assessment Sensation Gross Sensation WNL Muscle Tone Muscle Tone WNL Yes M6 PT-IP Treatment Start: 04/05/19 12:12 Freq: NEEDED Status: Active Protocol: Document 04/05/19 10:44 AB (Rec: 04/05/19 12:26 AB [id number]) Physical Therapy Treatment Education Education Provided Precautions,Safety Other Treatments Other Treatment Performed educated pt on log roll bed mobility due to spine compression fractures. M7 PT-IP Assessment and Plan Start: 04/05/19 12:12 Freq: NEEDED Status: Active Protocol: Document 04/05/19 10:44 AB (Rec: 04/05/19 12:26 AB [id number]) PT Summary Assessment and Plan Potential Rehabilitation Potential Good Status of Condition at Evaluation Stable Summary Impairments Pain,ROM,Strength,Balance,Bed Mobility,Transfers,Gait, Activity Tolerance Assessment Summary pt requiring SBA to CGA with mobility. Pt will likely progress during hospital stay and may go home when medically stable. will conduct stair training when appropriate. Goals Transfer Goal Independent Gait Goal Independent Gait Distance 300 Other Goals up/down 7 steps with B rails SBA; up/down 7 steps with L rail ascending SBA Days to Meet Goals 5 Frequency of Treatment Frequency Of Treatment Once a Day Treatment Plan Physical Therapy Treatment Plan Bed Mobility Training,Transfer Training,Gait Training, Therapeutic Exercise,Balance Retraining,Post Op Education, Discharge Planning,Hot or Cold Pack,Neuromuscular Re-ed, Coordination Retraining,Manual Therapy Recommendations To Nursing Amount of Assist Needed 1 Person Assist Discharge Recommendations PT Discharge Recommendations Home with Assistance
--- NOTE | 2019-04-05 11:00 | PM.PN.1 ---
Subjective Subjective Date Patient Seen: 04/05/19 Time Patient Seen: 11:00 Interval history: Patient had vomiting this morning about 230 when she showered to get the blood out of her hair. No vomiting since but has been a little bit nauseated. She has tolerated clear liquids this morning. The patient does not tolerate most oral narcotics as the cause itching. She had tramadol. She does tolerate IV morphine . She apparently also tolerates IV Dilaudid which is which she has been getting. Exam Vital Signs (past 8 hours): - 04/05/19 04:00 04/05/19 04:30 04/05/19 08:00 Temperature 97.2 F L 98.1 F Pulse Rate 80 61 Respiratory Rate 16 16 Blood Pressure 115/68 114/57 L Pulse Oximetry 93 95 100 04/05/19 10:21 Temperature Pulse Rate Respiratory Rate Blood Pressure Pulse Oximetry 100 Oxygen Delivery Method Room Air Oxygen Flow Rate 0 Narrative Exam Narrative: Operative no apparent distress. Extraocular movements intact. Pupils are small but equal and reactive to light. Face is symmetric. Touch is intact on her face bilaterally. Tongue is midline in uvula elevates in the midline. Strap but a but straight is 2+ and equal bilaterally trip these ES platysma it is also intact. 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 She lifts her legs without difficulty strength on flexion extension at the knees normal 2+ she has 2+ biceps and forearm reflexes and 1+ patellar reflex. Touch is intact in her lower extremities. Patient's lungs are clear to auscultation without rales or rhonchi. Heart regular rate and rhythm without murmur gallop. Abdomen is protuberant soft nontender without mass. Patient is alert and oriented. Speech rate and content are appropriate. Affect is appropriate. Objective Labs Result Diagrams: 04/04/19 14:45 04/04/19 14:45 Labs: Laboratory Results - last 24 hr 04/04/19 04/04/19 14:45 14:45 WBC 16.7 H RBC 4.23 Hgb 12.7 Hct 37.0 MCV 87.6 MCH 30.0 MCHC 34.3 RDW 13.8 Plt Count 307 Neut % (Auto) 74.3 Lymph % (Auto) 17.7 L [place] % (Auto) 5.0 Eos % (Auto) 1.9 L Baso % (Auto) 1.1 Neut # (Auto) 84618 H Lymph # (Auto) 3000 [place] # (Auto) 800 Eos # (Auto) 300 Baso # (Auto) 200 H Sodium 138 Potassium 3.5 Chloride 106 Carbon Dioxide 21 L BUN 20 H Creatinine 0.80 Estimated GFR > 60.0 BUN/Creatinine Ratio 25.0 H Glucose 120 H Calcium 9.1 Total Bilirubin 0.7 AST 40 H ALT 31 Alkaline Phosphatase 66 Total Protein 6.7 Albumin 4.1 Globulin 2.6 Albumin/Globulin Ratio 1.6 Assessment & Plan Assessment & Plan narrative: Compression fracture of vertebral artery it with 13th rib attachments. Sacral fracture. Patient has local pain but otherwise no a neurologic sequela. She does remain nauseated which is little concerning for discharge. She is also being treated with IV pain medication. Plan to convert her to p.o. meds. Advance diet. Possible discharge later today or early tomorrow. Discussed with orthopedic PA who contacted Dr. Villafana. Recommend use of a walker and follow-up in their clinic in about 2 weeks. Probably follow up with 1 of the spine Surgeons if available. Quality VTE Deep Vein Thrombosis/Pulmonary Embolism Present on Admission: No
--- NOTE | 2019-04-05 11:48 | P.CONS_ITS ---
History of Present Illness Consult details Date Patient Seen: 04/05/19 Time Patient Seen: 11:49 Chief complaint: Fall Reason for consult: Back pain. Thoracic compression fracture and transverse sacral fracture Requesting provider: Tyler Yepez Narrative: Arelis is a 53-year-old female fell while descending a ladder from the roof her garage yesterday. She does not remember the details of the fall but thinks she must a fall and backwards on top of the ladder as it slipped when she was descending. Estimated fall 8-10 feet. She was evaluated [facility] Emergency Room found to have a scalp laceration and concussion as well as a T12 vertebral compression fracture and a transverse sacral fracture. She has had nausea and vomiting and post concussive symptoms but is otherwise neuro intact. She is voiding appropriately and denies any numbness tingling or extremity weakness. She does endorse back pain when she is sitting or lying down that is better when she is standing up. [facility] Surgical History History of (Acute) Family History Brother Age: 52 Depression Bulimia Drug abuse Grandfather Age: 96 Essential hypertension, hypertension with unspecified goal Heart disease Grandmother Age: 96 Essential hypertension, hypertension with unspecified goal Malignant neoplasm of colon, unspecified part of colon Mother Age: 76 Obesity, unspecified obesity severity, unspecified obesity type Essential hypertension, hypertension with unspecified goal Bipolar affective disorder, remission status unspecified Sister Age: 55 Bipolar affective disorder, remission status unspecified Obesity, unspecified obesity severity, unspecified obesity type Essential hypertension, hypertension with unspecified goal Sleep apnea, unspecified type Social History household members: children Smoking Status: Never smoker second hand exposure: No alcohol intake: current substance use type: does not use Meds Home Medications and Allergies Home Medications Medication Instructions Recorded Confirmed Type estradiol 0.5 mg tablet 0.5 mg PO DAILY #90 tab 04/09/18 04/04/19 Rx Allergies Allergy/AdvReac Type Severity Reaction Status Date / Time cat dander Allergy Mild ITCHY, Verified 04/04/19 15:13 WATERY EYES Penicillins [PENICILLINS] Allergy Mild HIVES Verified 04/04/19 15:13 hydrocodone [HYDROCODONE] AdvReac Intermediate MAKES MY Verified 04/04/19 15:13 SKIN CRAWL AND MY BRAIN BECOMES OVERACTIVE oxycodone [OXYCODONE] AdvReac Intermediate MAKES MY Verified 04/04/19 15:13 SKIN CRAWL AND MY BRAIN OVERACTIVE Review of Systems Review of Systems Narrative: Positive for nausea and vomiting, positive for headache, positive for back pain. ROS Unobtainable: All systems reviewed & are unremarkable except as noted in HPI and below Exam Vital Signs (past 8 hours): - 04/05/19 04:00 04/05/19 04:30 04/05/19 08:00 Temperature 97.2 F L 98.1 F Pulse Rate 80 61 Respiratory Rate 16 16 Blood Pressure 115/68 114/57 L Pulse Oximetry 93 95 100 04/05/19 10:21 Temperature Pulse Rate Respiratory Rate Blood Pressure Pulse Oximetry 100 Oxygen Delivery Method Room Air Oxygen Flow Rate 0 Narrative Exam Narrative: General: Alert oriented female. No acute distress. finishing up work with physical therapy standing and then transitioned into logroll into bed on her own. HEENT exam: No facial ecchymosis. Patient does have dried blood in her hair still. Normal eye movements. Neck: No midline tenderness. Normal range of motion. Mild soreness along the trapezius on the left Respiratory: Unlabored on room Spine: Focal tenderness to palpation thoracolumbar junction no ecchymosis, distal at sacrum posterior pelvis there is ecchymosis on the right and the left with larger ecchymosis on the left side. No blisters fluctuance or wound. Moderate tenderness to palpation this area. Perianal sensation intact. Denies any loss of feeling numbness or tingling. Normal 5/5 strength lower extremities Extremity examination: Upper extremities full range of motion no tenderness to palpation. Sensation intact to light touch median radial ulnar. Left side medial elbow there is superficial ecchymosis. No tenderness to palpation. Full range of motion of the elbow and wrist. 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 Normal range of motion knees 5/5 knee flexion and extension bilaterally. 5/5 dorsiflexion and plantar flexion bilaterally. Soft calves. Sensation grossly intact to light touch all dermatomes of the lower extremities. Objective Imaging CT scan - pelvis: My impression: Transverse sacral fracture S2 level minimal canal stenosis T12 compression fracture less than 25% height loss Radiologist's impression: IMPRESSION: 1. Mild acute compression fracture involving the lowest rib-bearing vertebra. 2. Transverse sacral fracture. 3. Transitional lumbosacral vertebra. 4. Chronic bilateral pars defects one level above the transitional lumbosacral vertebra with chronic mild anterolisthesis at that level. Dictated by: Rob Scott M.D. on 04/04/2019 at 15:16 Approved by: Rob Scott M.D. on 04/04/2019 at 15:38 Labs Result Diagrams: 04/04/19 14:45 04/04/19 14:45 Labs: Laboratory Results - last 24 hr 04/04/19 04/04/19 14:45 14:45 WBC 16.7 H RBC 4.23 Hgb 12.7 Hct 37.0 MCV 87.6 MCH 30.0 MCHC 34.3 RDW 13.8 Plt Count 307 Neut % (Auto) 74.3 Lymph % (Auto) 17.7 L [place] % (Auto) 5.0 Eos % (Auto) 1.9 L Baso % (Auto) 1.1 Neut # (Auto) 18475 H Lymph # (Auto) 3000 [place] # (Auto) 800 Eos # (Auto) 300 Baso # (Auto) 200 H Sodium 138 Potassium 3.5 Chloride 106 Carbon Dioxide 21 L BUN 20 H Creatinine 0.80 Estimated GFR > 60.0 BUN/Creatinine Ratio 25.0 H Glucose 120 H Calcium 9.1 Total Bilirubin 0.7 AST 40 H ALT 31 Alkaline Phosphatase 66 Total Protein 6.7 Albumin 4.1 Globulin 2.6 Albumin/Globulin Ratio 1.6 Assessment & Plan Assessment & Plan narrative: 1. T12 compression fracture: Minimal height loss. Recommend pain control. Tylenol anti-inflammatories. Calcium and vitamin-D. Continues calcitonin as well. 2. Transverse sacral fracture: No evidence of neurologic compromise. Discussed red flag symptoms with the patient which be bowel and bladder symptoms of retention or incontinence. Patient has no symptoms concerning for cauda equina. Discussed non operative treatment. Recommend mobilization with assistive devices for the next 6-8 weeks. Discussed precautions and care. The patient understands and agrees with the plan. Follow-up outpatient 2 weeks for repeat examination or sooner return to the ER if any concerning symptoms arise. Time Spent With Patient Time with patient: less than 15 minutes
[2019-04-05] MEDS: TRAMADOL 50 MG TABLET PO ×3 (13:04→23:55)
[2019-04-05] MEDS: ACETAMINOPHEN 325 MG TABLET 650 MG PO (16:54)
--- NOTE | 2019-04-05 17:51 | PC.NURSE ---
Addendum entered by Kaylee Oliver R.N. 04/05/19 22:36: Reports Tramadol brought pain to a 2 or 3. IV flushing well but drsg not intact, old dry blood visible through medic foam drsg. Drsg removed, site cleaned with alcohol pad, new tegaderm placed. I secured J-loop with small pce of tape & mesh stockinette. Original Note: Evening note: Arelis sat up in chair, friend helping her wash hair and detangle. Now back to bed, side lying left. Neuro intact except for lightheadedness when patient turns [id number] in bed & when ambulating in room. Some bruising & dried blood observed around staple line, georgie intact, wound approximated, no active bleeding observed. Pt asked should I just pick the blood off? I instructed her not to pick at wound area & to leave it alone, keeping it clean & dry. She vocalized understanding. Lungs clear, abdomen soft, reports vague nausea brought on when OOB & dizzy. Reports pain 6/10 to lower back, medicated with Tramadol & Tylenol. VS stable. Instructed to call staff for any needs/concerns.
[2019-04-05] MEDS: SODIUM CHLORIDE 0.9% FLUSH 10 ML IV (21:57)
[2019-04-06] VITALS (8 sets, daily range): BP systolic 127–144; BP diastolic 64–74; PULSE 61–78; RESP 16–18; TEMP 36.4–37.6; O2SAT 95–98
[2019-04-06] MEDS: ACETAMINOPHEN 325 MG TABLET 650 MG PO ×2 (01:45→11:43)
[2019-04-06] MEDS: TRAMADOL 50 MG TABLET PO (06:46)
--- NOTE | 2019-04-06 07:20 | PC.NURSE ---
Denies FINN all night, but C/O lower back pain. Medicated with 2 doses of 50 mg. of Tramadol with little relief. DAy RN. aware, will cont. POC & monitor. Denies nausea all shift, but still C/O dizziness.
[2019-04-06] MEDS: SODIUM CHLORIDE 0.9% FLUSH 10 ML IV (09:58)
[2019-04-06] MEDS: DOCUSATE 100 MG CAPSULE PO (09:58)
--- NOTE | 2019-04-06 11:02 | PT.IPTN ---
Current Diagnoses Laceration without foreign body of scalp, initial encounter (04/04/19) Concussion without loss of consciousness, initial encounter (04/04/19) Unspecified fracture of unspecified thoracic vertebra, initial encounter for closed fracture (04/04/19) Unspecified fracture of sacrum, initial encounter for closed fracture (04/04/19) Physical Therapy Treatment Note M2 PT-IP Current Condition Start: 04/05/19 12:12 Freq: NEEDED Status: Active Protocol: Document 04/05/19 10:44 AB (Rec: 04/05/19 12:26 AB [id number]) Physical Therapy Current Condition Current Condition Evaluation Date 04/05/19 Treatment Diagnosis s/p fall; concussion; sacral fx; thoracic spine fx; difficulty in walking Onset Date 04/04/19 M3 PT-IP Subjective Start: 04/05/19 12:12 Freq: NEEDED Status: Active Protocol: Document 04/06/19 10:39 CLB (Rec: 04/06/19 14:41 CLB [id number]) Subjective Physical Therapy Visit Type Type Treatment Note Visit Start Time 10:39 Visit Stop Time 11:02 Total Visit Minutes 23 Number of LEATHER LACER Visits 1 Physical Therapy Visit Comments Patient Comments pt agreeable to do PT Therapy Pain Assessment Pain When Pain Assessed During Mobility Pain Present Pain Present Pain Reported Location Lower Back Intensity 6 Scale Used Numeric (1 - 10) Pain Management Techniques Re-positioning,Timing of Activity with Medications M4 PT-IP Mobility and Gait Start: 04/05/19 12:12 Freq: NEEDED Status: Active Protocol: Document 04/06/19 10:39 CLB (Rec: 04/06/19 14:41 CLB [id number]) PT-Bed Mobility Assessment Rolling Type of Rolling Log Rolling Level of Assist Standby Assistance Supine to Sit Supine to Sit Standby Assistance,1 Person Assistance Sit to Supine Sit to Supine Standby Assistance,1 Person Assistance Scooting Scooting to Edge of Bed Standby Assistance PT-Transfer Assessment Sit to and From Stand Sit to and from Stand Standby Assistance,Contact Guard Assistance,1 Person Assistance,Use of Upper Extremities Equipment Transfer Assistive Device None,Bed Rail,Front Wheeled Walker Orthotic/Prosthetic Devices or Brace: No Transfers Transfer Destination Bed,Toilet Transfer Ability Level of Assist Standby Assistance,Contact Guard Assistance,1 Person Assistance,Use of Upper Extremities Comments Mobility Comments Pt c/o dizziness when lying down but not during upright mobility. Gait Assessment Gait Gait Assistance Required: Standby Assistance Distance (Feet) 150 Assistive Devices Assistive Device Gait Belt,Front Wheeled Walker Orthotic/Prosthetic Devices or Brace: No Gait Deviations General Gait Pattern Decreased Stride Length Factors Limiting Gait Function Factors Limiting Gait Function Decreased Strength,Limited Range of Motion,Pain Comments Gait Comments Dr order stated FWW to be used for 6-8 weeks. During tx pt stated she didn't want to use walker. After discussing with pt benefits of FWW use pt agreed to try walker. Pt reported decrease in pain to 4 /10 with use of walker and agreed to use walker. Pt is SBA with use of walker with cues to relax shoulders. M5 PT-IP Objective Assessments Start: 04/05/19 12:12 Freq: NEEDED Status: Active Protocol: Document 04/05/19 10:44 AB (Rec: 04/05/19 12:26 AB [id number]) Orientation Orientation/Cognition Level of Alertness Alert Orientation Name,Age,Birthday,Month,Date, Year,Day of Week,Place, Situation Language Function Ability No Deficits Noted Safety Awareness Understands Safety Issues Memory Description No Deficits Noted Gross Range of Motion Lower Extremity ROM Assessment Within Functional Limits Strength Lower Extremity Strength Assessment Within Functional Limits Coordination Assessment Gross Coordination Gross Coordination WNL Sensation Assessment Sensation Gross Sensation WNL Muscle Tone Muscle Tone WNL Yes M6 PT-IP Treatment Start: 04/05/19 12:12 Freq: NEEDED Status: Active Protocol: Document 04/05/19 10:44 AB (Rec: 04/05/19 12:26 AB [id number]) Physical Therapy Treatment Education Education Provided Precautions,Safety Other Treatments Other Treatment Performed educated pt on log roll bed mobility due to spine compression fractures. M7 PT-IP Assessment and Plan Start: 04/05/19 12:12 Freq: NEEDED Status: Active Protocol: Document 04/06/19 10:39 CLB (Rec: 04/06/19 14:41 CLB [id number]) PT Summary Assessment and Plan Potential Rehabilitation Potential Good Status of Condition at Evaluation Stable Summary Impairments Pain,ROM,Strength,Balance,Bed Mobility,Transfers,Gait, Activity Tolerance Assessment Summary Pt is SBA-CGA for all mobility with decrease in pain during ambulation with FWW. Pt c/o dizziness during log roll but had no dizziness with upright activities. Pt will be able to d/c home will need to conduct stair training when able before d/c. Goals Transfer Goal Independent Gait Goal Independent Gait Distance 300 Other Goals up/down 7 steps with B rails SBA; up/down 7 steps with L rail ascending SBA Days to Meet Goals 5 Frequency of Treatment Frequency Of Treatment Once a Day Treatment Plan Physical Therapy Treatment Plan Bed Mobility Training,Transfer Training,Gait Training, Therapeutic Exercise,Balance Retraining,Post Op Education, Discharge Planning,Hot or Cold Pack,Neuromuscular Re-ed, Coordination Retraining,Manual Therapy Recommendations To Nursing Amount of Assist Needed 1 Person Assist Discharge Recommendations PT Discharge Recommendations Home with Assistance Equipment Needed for Home Before FWW (issue FWW at time of d/c) Discharge
--- NOTE | 2019-04-06 11:16 | P.PN_ITS ---
Subjective Subjective Date Patient Seen: 04/06/19 Time Patient Seen: 11:16 Interval history: Patient was having a lot of dizziness yesterday when walking which is why she remained in the hospital. That has resolved. The only dizziness now she has is when she changes position in bed. Walking she is not dizzy at all. Her pain however is poorly controlled with just tramadol. She is now having shoulder and back pain. Her headache is also persistent. Exam Vital Signs (past 8 hours): - 04/06/19 05:30 04/06/19 05:38 04/06/19 07:30 Temperature 98.8 F 99.7 F H Pulse Rate 78 76 Respiratory Rate 18 18 Blood Pressure 144/73 H 127/73 Pulse Oximetry 98 98 96 Oxygen Delivery Method Room Air Oxygen Flow Rate 0 Narrative Exam Narrative: Vital signs noted. Cooperative. Extraocular movements are intact. Lungs are clear to auscultation without rales or rhonchi. Heart regular rate and rhythm without murmur gallop. Abdomen is soft nontender without mass. Objective Labs Result Diagrams: 04/04/19 14:45 04/04/19 14:45 Assessment & Plan Assessment & Plan narrative: I think if we can get the patient's pain under control we can discharge her. I have switched her to oral Naprosyn and to oral Dilaudid as she tolerated IV Dilaudid well. Will check a little later and if d oing okay we can discharge. Quality VTE Deep Vein Thrombosis/Pulmonary Embolism Present on Admission: No
[2019-04-06] MEDS: NAPROXEN 250 MG TABLET 500 MG PO ×2 (11:43→16:13)
[2019-04-06] MEDS: HYDROMORPHONE 2 MG TABLET 1 MG PO ×2 (11:43→16:22)
--- NOTE | 2019-04-06 16:04 | PM.DS.1 ---
History of Present Illness History of Present Illness Date Patient Seen: 04/06/19 Time Patient Seen: 16:04 Chief complaint: Fall Narrative: Patient is a woman who fell from a roof in injured her scalp and sustained fractures T12 and sacrum. Discharge Providers Provider Date of admission: 04/04/19 19:54 Discharge Date: 04/06/19 Primary care physician: Jodee Schuster PA-C Consults: 04/04/19 20:47 Consult to Physical Therapy Evaluate & Treat Comment: Sacral/thoracic fractures, non-op, activity as santo Physician Instructions: Evaluate and Treat 04/05/19 11:32 Consult to Physical Therapy Evaluate & Treat Comment: Orthopedics recommends patient walk with a walker Physician Instructions: Evaluate and Treat 04/05/19 11:37 Consult to Physician Routine Comment: Consulting Provider: Felicity Villafana Reason for consultation: lumbar and sacral fractures Has provider been notified: Yes Discharge provider: Tyler Yepez MD Summary Hospital Course Discharge Diagnosis: 1. T12 compression fracture acute from fall from roof D 2. Sacral fracture acute from fall from roof 3. Scalp laceration acute from fall from roof 4. Concussion secondary to fall from roof with initial nausea and vomiting and subsequent dizziness all acute Five 5. Subgaleal hematoma secondary to fall from roof Hospital Course: Patient was admitted and pain controlled with IV pain medication. This included nonsteroidals and narcotics. We attempted to switch her to p.o. pain medication which was ultimately successful. She had persistent dizziness with standing and walking but that finally resolved. She still had some dizziness with change of position in bed. This was not felt to be so serious as to preclude discharge as she was not dizzy when she stood or walked. She is discharged on Dilaudid p.o. and on Naprosyn to follow up in the office with Dr. Villafana of Orthopedics. Status at Discharge Cognitive/behavioral status at discharge: oriented Functional status at discharge: uses cane/walker (Recommended by orthopedic vocational rehab consultant due to back fractures) Overall status at discharge: patient is progressing back to baseline Exam Vital Signs (past 8 hours): - 04/06/19 09:50 04/06/19 11:00 04/06/19 13:00 Temperature 98.6 F Pulse Rate 70 Respiratory Rate 18 Blood Pressure 132/74 Pulse Oximetry 96 96 97 Oxygen Delivery Method Room Air Oxygen Flow Rate 0 Narrative Exam Narrative: Lungs are clear. Heart regular rate and rhythm without murmur gallop. Abdomen is protuberant soft nontender without mass. No motor deficits noted. Alert and oriented x3. Objective Labs Result Diagrams: 04/04/19 14:45 04/04/19 14:45 Discharge Plan Discharge Plan Patient Disposition: Home Discharge comment: You have a concussion. You may have symptoms for prolonged period of time. I am sending her home on 2 medications for pain. They are Dilaudid and Naprosyn. They can be taken together. Additionally am sending her home on a drug called amitriptyline which she should take before going to bed and will hopefully help her headaches. Discharge orders & Medications Prescriptions: New amitriptyline 10 mg tablet 10 mg PO BEDTIME Qty: 30 RF: 0 hydromorphone [Dilaudid] 2 mg tablet 2 mg PO Q4-6H PRN (Reason: pain, moderate) Qty: 20 RF: 0 naproxen [Naprosyn] 500 mg tablet 500 mg PO BID Qty: 20 RF: 1 Continued estradiol 0.5 mg tablet 0.5 mg PO DAILY Qty: 90 RF: 3 Follow up/Referrals: Felicity Villafana MD [Physician] - 2 Weeks (Please call Dr. Villafana is office and tell them that she saw you for back fractures and wanted to see you in 2 weeks.) Jodee Shcuster PA-C [Primary Care Provider] - 1 Month (Please call your primary care provider and make a follow-up appointment to see her sometime within the next month regarding your concussion.) Diet/Activity/Treatments Diet: Diet as Tolerated Activity: As tolerated. Use a walker to ambulate. This is to help support her back. Should you have any problems with urinary incontinence, leg weakness or numbness that is new call Dr. Villafana is office immediately or go to the emergency room Visit Report/Discharge Packet Instructions: DI for Concussion, DI for Laceration Repair of the Scalp, DI for Laceration Repair -- Complex Suture Discharge Data Primary Care Provider: Jodee Schuster Attending Provider: Glenis Neri Admit Date/Time: 04/04/19 19:54 Quality VTE Deep Vein Thrombosis/Pulmonary Embolism Present on Admission: No
--- NOTE | 2019-04-07 07:59 | CM.DPC ---
DCP Discharge Home Per MD, pt was medically stable to d/c home last night 04/06/19 with family support and follow up with Orthopedics and no identified barriers to discharge. Per PT, recommending safe d/c home with FWW and family support. Plan: Patient discharged home last night 04/06/19 after DCP shift via family POV and FWW and follow up appointment with orthopedics. No DCP needs at time of discharge. Latha Sheikh MSW
== END 2019-04-06 16:41 | disposition home or self-care (01) ==
LOC: ED 19:30 → AC 19:55
PROVIDERS: Admitting Provider Surgery; Emergency Provider Emergency Medicine; Family Provider Physician Assistant; PCP Physician Assistant; Visit Provider Surgery
DX: S22.080A Wedge compression fracture of T11-T12 vertebra, initial encounter for closed fracture (principal); M54.9 Dorsalgia, unspecified; S01.01XA Laceration without foreign body of scalp, initial encounter; S06.0X0A Concussion without loss of consciousness, initial encounter; S32.10XA Unspecified fracture of sacrum, initial encounter for closed fracture; W11.XXXA Fall on and from ladder, initial encounter; S06.2X0A Diffuse traumatic brain injury without loss of consciousness, initial encounter; Z23 Encounter for immunization
CPT/HCPCS: 12004; 36415; 70450; 71045; 71260; 72125; 72170; 74177; 80053; 81003; 85025; 90471; 94762; 96361; 96374; 96375; 96376; 97116; 97161; 97530; 99217; 99219; 99225; 99284; 99291; 99292; G0378; 90715; J1170; J1885; J2405

== ENCOUNTER → 2019-04-22 10:10 | Outpatient (CLI) | payer OTHER, SELFPAY ==
[2019-04-04 21:20] VITALS: BMI 38.2
[2019-04-22 11:11] LABS: Cholesterol 270 mg/dL (140-199); HDL Cholesterol 40 mg/dL (40-60); LDL Cholesterol Calculated 209 mg/dL (<100); Triglycerides 106 mg/dL (35-150)
== END ==
PROVIDERS: PCP Physician Assistant; Visit Provider Physician Assistant
DX: E78.2 Mixed hyperlipidemia (principal)
CPT/HCPCS: 36415; 80061

== ENCOUNTER 2019-05-21 23:27 | Emergency (ER) | payer OTHER, SELFPAY ==
[2019-04-04 21:20] VITALS: BMI 38.2
--- NOTE | 2019-05-21 23:31 | ED.GENADULT ---
HPI - General Adult General Chief complaint: Neuro Symptoms/Deficit Stated complaint: woke up left side of body numb/tingly Time Seen by Provider: 05/21/19 23:31 Source: patient Mode of arrival: Ambulatory Limitations: no limitations History of Present Illness HPI narrative: 54-year-old female here for evaluation of tingling in the left side of her face and ?numbness? on the left side of her body. Patient states that yesterday she was not feeling well. No specific complaints just the and general overall ?malaise ?she states she went to bed feeling this way. She woke up to tingling on the left side of her face numbness in the left side of her body. No other associated symptoms. She states that the tingling on the side of her face is what woke her up. At the end of last year she sustained a concussion after a trauma where she fell off a ladder. Since then she has had daily vertigo. That has not changed. Related Data Previous Rx's Medication Instructions Recorded hydromorphone [Dilaudid] 2 mg PO Q4-6H PRN #20 tab 04/06/19 naproxen [Naprosyn] 500 mg PO BID #20 tab 04/06/19 hydromorphone 2 mg tablet 2 mg PO Q4H PRN #14 tab 04/15/19 estradiol 0.5 mg tablet 0.5 mg PO DAILY #90 tab 04/22/19 meclizine 25 mg PO TID PRN #30 tab 05/22/19 Allergies Allergy/AdvReac Type Severity Reaction Status Date / Time cat dander Allergy Mild ITCHY, Verified 04/22/19 09:26 WATERY EYES Penicillins [PENICILLINS] Allergy Mild HIVES Verified 04/22/19 09:26 hydrocodone [HYDROCODONE] AdvReac Intermediate MAKES MY Verified 04/22/19 09:26 SKIN CRAWL AND MY BRAIN BECOMES OVERACTIVE oxycodone [OXYCODONE] AdvReac Intermediate MAKES MY Verified 04/22/19 09:26 SKIN CRAWL AND MY BRAIN OVERACTIVE Review of Systems Constitutional Constitutional: Denies fever(s), Denies headache(s), Reports malaise and Denies weakness Eyes Eyes: Denies change in vision, Denies diplopia and Denies loss of vision ENT Ears, Nose, Mouth, and Throat: Denies abnormal hearing, Denies change in voice, Reports vertigo, Denies dizziness, Denies facial pain, Denies headache(s), Denies disequilibrium, Denies sinus pressure and Denies sore throat Cardiovascular Cardiovascular: Denies chest pain, Denies rapid heart rate, Denies palpitations and Denies dyspnea Respiratory Respiratory: Denies cough and Denies dyspnea Gastrointestinal Gastrointestinal: Denies abdominal pain, Denies nausea and Denies vomiting Genitourinary Genitourinary: Denies dysuria Musculoskeletal Musculoskeletal: Denies abnormal gait, Denies myalgias, Denies arthralgias, Reports numbness and Reports tingling Integumentary/Breasts Skin/Breast: Denies lesions and Denies rash Neurologic Neurologic: Denies abnormal hearing, Denies abnormal movements, Denies abnormal speech, Denies abnormal gait, Denies behavioral changes, Denies burning sensations, Denies confusion, Reports vertigo, Denies dizziness, Denies headache(s), Denies focal weakness, Denies loss of vision, Denies memory loss, Reports numbness, Denies other visual disturbances, Denies radicular pain, Denies restless legs, Denies convulsions, Denies seizure-like activity, Reports tingling, Reports paresthesias, Denies disequilibrium and Denies weakness Psychiatric Psychiatric: Denies behavioral changes, Denies confusion and Denies memory loss Endocrine Endocrine: Denies palpitations Hematologic/Lymphatic Hematologic/Lymphatic: Denies easy bleeding and Denies easy bruising Allergic/Immunologic Allergic/Immunologic: Denies urticaria Patient History Medical History Bilateral foot pain (Inactive) Concussion (Inactive) Laceration of head (Inactive) Mixed hyperlipidemia (Inactive) Pancreatitis, acute (Inactive) Post-menopause on HRT (hormone replacement therapy) (Inactive) Sacral fracture (Inactive) Thoracic spine fracture (Inactive) Surgical History History of (Acute) Social History household members: children Smoking Status: Never smoker second hand exposure: No alcohol intake: current substance use type: does not use Smoking Status: Never smoker alcohol intake frequency: a few times a month Substance Use Type: does not use Exam Initial Vital Signs Initial Vital Signs: Vital Signs Temperature 97.7 F 05/21/19 23:35 Pulse Rate 85 05/21/19 23:35 Respiratory Rate 20 05/21/19 23:35 Blood Pressure 195/91 H 05/21/19 23:35 Pulse Oximetry 99 05/21/19 23:35 Const General: cooperative, comfortable, well developed, well groomed and No acute distress Limitations: mental status not altered HENMT Head: normal to inspection and normocephalic Ears: TM normal on the right Nose: external nose normal Face and sinus: normal facial exam Mouth: oral mucosae normal Throat: posterior oropharynx normal Eyes Pupils: PERRL EOM: EOM intact bilaterally Resp Effort & Inspection: normal respiratory effort Auscultation: clear to auscultation bilaterally Cardio Rate: regular rate Rhythm: regular rhythm Pulses: radial pulses present GI Inspection: non-distended Palpation: soft, No firm and No tender Skin Lesions: no lesions Rashes: no rashes Neuro General: alert and oriented x3 Cognition: normal cognition Gait: normal gait Motor: muscle tone normal throughout Sensory Exam: no sensory deficits noted Other: Cranial nerves intact except for a subjective decrease in sensation to light touch to the left side of the face compared to the right. She states she still can feel touch on the side just feels less pronounced than the right side. 5/5 strength bilateral upper and lower extremities. Sensation intact to light touch bilateral lower extremities. She has a subjective decrease in light touch to the ulnar nerve distribution of the left arm compared to the right. Extrem General: normal to inspection and capillary refill normal Psych Appearance: grossly normal and well kempt Scores GCS [place] coma scale eye opening: Spontaneous [place] coma scale verbal response: Orientated [place] coma scale motor response: Obey commands [place] coma scale total score: 15 NIH Stroke Scale Level of Conciousness: Alert, keenly responsive Ask month/age: Answers both questions correctly. Open/close eyes, close hand: Performs both tasks correctly Best gaze horizontal: Normal Visual bowling: No visual loss Facial palsy: Normal symetrical movement Left arm drift: No drift for full 10 sec Right arm drift: No drift for full 10 sec Left leg drift: No drift for full 10 sec Right leg drift: No drift for full 10 sec Limb ataxia: Absent Sensory on face/arms/legs: Mild to moderate sensory loss, can tell touch Best language: No aphasia, normal Dysarthria: Normal Extinction or inattention: No abnormality Total NIH Stroke scale score: 1 Course Orders Ordered: ED Orders 05/21/19 23:32 EKG-12 Lead Stat Vital Signs Vital signs: Vital Signs - 8 hr 05/21/19 23:35 05/22/19 00:04 Temperature 97.7 F Pulse Rate 85 60 Respiratory Rate 20 18 Blood Pressure [Right Arm] 195/91 H 167/74 H Pulse Oximetry 99 96 Medical Decision Making ECG Data Attestation: I personally reviewed and interpreted this ECG as follows: Prior ECG tracings: not available for review Interpretation: Sinus rhythm Ventricular rate is 61 Normal axis Normal QRS Normal QTC No ST T wave changes MDM Narrative Medical decision making narrative: Patient has no objective findings on her neurologic exam. The only subjective findings are a slight decrease in sensation to light touch to the left side of her face and also decrease in sensation to light touch what appears to be the ulnar nerve distribution of the left arm. EKG is unremarkable. I've low suspicion for CVA. Low suspicion for TIA. I do suspect that this is related to the way that she was sleeping. I do not think this is related to her concussion that she sustained at the end of last year. I did discuss this with the patient. She has had daily vertigo since her concussion. I did inform her that she should talk with her primary doctor about the indications for any referral for this. Will hold on further workup for now. Patient was given return precautions and follow-up instructions. She expressed understanding and agreement plan. Discharge Plan Departure Patient Disposition: Home Clinical Impression: Paresthesias, Vertigo Discharge Date/Time: 05/22/19 00:30 Instructions: Vertigo (Alternative Therapy), DI for Vertigo Activity Restrictions/Additional Instructions: Recommend you talk with your primary doctor about further workup of your vertigo. If the symptoms that brought her to the emergency department tonight change or worsen please return for further evaluation. Take the medication as needed as directed for the vertigo. Prescriptions: New meclizine 25 mg tablet 25 mg PO TID PRN (Reason: vertigo) Qty: 30 RF: 0 No Action estradiol 0.5 mg tablet 0.5 mg PO DAILY Qty: 90 RF: 3 hydromorphone [Dilaudid] 2 mg tablet 2 mg PO Q4H PRN (Reason: pain) Qty: 14 RF: 0 hydromorphone [Dilaudid] 2 mg tablet 2 mg PO Q4-6H PRN (Reason: pain, moderate) Qty: 20 RF: 0 naproxen [Naprosyn] 500 mg tablet 500 mg PO BID Qty: 20 RF: 1 Referrals: Jodee Schuster PA-C [Primary Care Provider] -
[2019-05-21 23:35] VITALS: BP 195/91; PULSE 85; RESP 20; TEMP 36.5; O2SAT 99
[2019-05-22 00:04] VITALS: BP 167/74; PULSE 60; RESP 18; O2SAT 96
== END 2019-05-22 00:30 | disposition home or self-care (01) ==
PROVIDERS: Emergency Provider Emergency Medicine; PCP Physician Assistant
DX: R20.2 Paresthesia of skin (principal); R42 Dizziness and giddiness
CPT/HCPCS: 93005; 99283; 99284

== ENCOUNTER → 2019-07-15 11:29 | Outpatient (CLI) | payer OTHER, SELFPAY ==
[2019-04-04 21:20] VITALS: BMI 38.2
--- NOTE | 2019-07-15 | DI.MRI.S_ITS ---
PROCEDURE: MR THORACIC SPINE WO CON INDICATIONS: Unspecified fracture of T11-T12 vertebra, initial TECHNIQUE: Noncontrast sagittal T1 spine echo and T2 fast spin echo, sagittal STIR, axial T1 and T2 fast spin echo through the thoracic spine. COMPARISON: [facility] [place], [place], XR THORACOLUMBAR SPINE 2 VIEWS, 07/02/2019, 10:55. FINDINGS: Image quality: Excellent. Alignment and Curvature: There is normal bony alignment. Bone Marrow: T12 compression fracture is seen, and there is approximately 25% height loss. There is mild marrow edema suggestive of subacute age. No definite associated posterior displacement of the posterior vertebral body wall, or canal narrowing. Additional linear signal change present within the T3 vertebral body with minimal less than 25% height loss, also with mild marrow edema suggestive of subacute age. Spinal Cord: Visualized spinal cord is normal in size and signal. Paraspinous Soft Tissues: No paravertebral masses. Miscellaneous: On axial images, central canal and foramina appear widely patent at all scanned levels. IMPRESSION: T3 and T12 compression fractures, as detailed above with an MR appearance without suggests subacute age. Please correlate clinically. Dictated by: Catrachito Gilbert M.D. on 07/15/2019 at 15:21 Approved by: Catrachito Gilbert M.D. on 07/15/2019 at 15:29
== END ==
PROVIDERS: PCP Student in an Organized Health Care Education/Training Program; Referring Provider Orthopaedic Surgery; Visit Provider Orthopaedic Surgery
DX: M48.54XA Collapsed vertebra, not elsewhere classified, thoracic region, initial encounter for fracture (principal)
CPT/HCPCS: 72146

== ENCOUNTER → 2020-09-27 15:48 | Outpatient (CLI) | payer OTHER, SELFPAY ==
[2019-04-04 21:20] VITALS: BMI 38.2
--- NOTE | 2020-09-27 15:50 | DI.RAD.S_ITS ---
PROCEDURE: XR HIP W PEL IF DONE RT 2V INDICATIONS: Right hip pain TECHNIQUE: AP pelvis with lateral view(s) of the right hip(s). COMPARISON: [facility], , XR PELVIS 1-2V, 04/04/2019, 14:33. FINDINGS: Bones: No fractures or dislocations. Pelvic ring appears intact. No suspicious bony lesions. Mild degenerative changes are present within the lower lumbar spine, sacroiliac joints and pubic symphysis overall stable. Soft tissues: The visualized bowel gas pattern is normal. No suspicious soft tissue calcifications. IMPRESSION: No acute osseous abnormality. Dictated by: Jovita Mariscal M.D. on 09/27/2020 at 17:01 Approved by: Jovita Mariscal M.D. on 09/27/2020 at 17:01
== END ==
PROVIDERS: PCP Student in an Organized Health Care Education/Training Program; Referring Provider Student in an Organized Health Care Education/Training Program; Visit Provider Student in an Organized Health Care Education/Training Program
DX: M25.551 Pain in right hip (principal); G89.29 Other chronic pain
CPT/HCPCS: 73502

== ENCOUNTER → 2021-06-01 13:08 | Outpatient (CLI) | payer OTHER, SELFPAY ==
[2019-04-04 21:20] VITALS: BMI 38.2
[2021-06-21 16:22] LABS: SARS CoV19 IgG 44.5
== END ==
PROVIDERS: PCP Student in an Organized Health Care Education/Training Program; Referring Provider Student in an Organized Health Care Education/Training Program; Visit Provider Student in an Organized Health Care Education/Training Program
DX: Z20.822 Contact with and (suspected) exposure to COVID-19 (principal)
CPT/HCPCS: 36415; 86769